=== PATIENT | male | born 1980 | race Hispanic/Latino ===

== ENCOUNTER 2018-05-25 15:52 | Emergency (ER) | payer BC ==
[~2018-05-25 15:52] MED LIST: ISOVUE-370 76%-LOCM 1 ML ONE
[2018-05-25] MEDS ORDERED: Adacel (T-DAP) 0.5 ML SYRINGE ONE (15:57)
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
[2018-05-25] MEDS ORDERED: Morphine 4 MG/ML VIAL ONE (17:26)
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
== END 2018-05-25 20:36 | disposition home or self-care (01) ==
LOC: ERS 15:52
DX: S27.321A Contusion of lung, unilateral, initial encounter (principal); S22.32XA Fracture of one rib, left side, initial encounter for closed fracture; S42.002A Fracture of unspecified part of left clavicle, initial encounter for closed fracture; S01.312A Laceration without foreign body of left ear, initial encounter; V89.2XXA Person injured in unspecified motor-vehicle accident, traffic, initial encounter
CPT/HCPCS: 12011; 70450; 71045; 71260; 72125; 72170; 74177; 90471; 90715; 96374; G0390; J2270; Q9966

== ENCOUNTER 2018-09-11 10:41 | Day surgery (SDC) | payer BC ==
[2018-09-05 16:05] VITALS: BMI 25.0
[2018-09-11] MEDS ORDERED: Bupivacaine PF 0.5% 30 ML VIAL ONE (11:33)
[2018-09-11] MEDS ORDERED: Fentanyl 100 MCG/2 ML VIAL ONE ×2 (12:24→13:28)
[2018-09-11] MEDS ORDERED: Ketorolac Tromethamine 30 MG/ML VIAL ONE (13:17)
[2018-09-11] MEDS ORDERED: PROPOFOL 200 MG/20 ML VIAL ONE (13:17)
[2018-09-11] MEDS ORDERED: Lidocaine 1% PF 5 ML VIAL ONE (13:17)
[2018-09-11] MEDS ORDERED: HYDROcodone/Acetaminophen 5/325 mg Tablet ONE (14:57)
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
== END 2018-09-11 16:25 | disposition home or self-care (01) ==
LOC: SDC 10:41
PROVIDERS: ATTEND Orthopaedic Surgery
PROC: 0PSB04Z Reposition Left Clavicle with Internal Fixation Device, Open Approach (ICD-10-PCS; principal; 2018-09-11)
DX: S42.022K Displaced fracture of shaft of left clavicle, subsequent encounter for fracture with nonunion (principal); X58.XXXD Exposure to other specified factors, subsequent encounter
CPT/HCPCS: 76000; C1713; J1885; J2001; J2704; J3010; S0020